=== PATIENT | male | born 1950 | race Caucasian/White ===

== ENCOUNTER → 2023-10-01 07:17 | Outpatient (REF) | payer OTHER, SELFPAY | LOC: DHCBS MAIN 07:17 | PROVIDERS: ATTENDING PHYSICIAN Internal Medicine Interventional Cardiology; FAMILY PHYSICIAN Internal Medicine | DX: I35.0 Nonrheumatic aortic (valve) stenosis (principal); Z95.2 Presence of prosthetic heart valve | CPT/HCPCS: 93306 ==

== ENCOUNTER → 2023-12-23 07:52 | Outpatient (REF) | payer OTHER, SELFPAY | LOC: HWRAD 07:52 | PROVIDERS: ATTENDING PHYSICIAN Internal Medicine; FAMILY PHYSICIAN Internal Medicine | DX: Z12.11 Encounter for screening for malignant neoplasm of colon (principal) | CPT/HCPCS: 74261 ==

== ENCOUNTER 2024-03-10 06:13 | Day surgery (SDC) | payer OTHER, SELFPAY ==
[2024-03-10 06:48] VITALS: BP 159/106
[2024-03-10 06:50] VITALS: BMI 27.9
[2024-03-10 06:53] VITALS: BMI 27.9
[2024-03-10 09:53] VITALS: BP 124/85
[2024-03-10 10:00] VITALS: BP 125/84
[2024-03-10 10:15] VITALS: BP 147/96
== END 2024-03-10 10:50 | disposition home or self-care (01) ==
LOC: SDS 06:13
PROVIDERS: ATTENDING PHYSICIAN Internal Medicine Gastroenterology
DX: D12.0 Benign neoplasm of cecum (principal); D12.2 Benign neoplasm of ascending colon; D12.3 Benign neoplasm of transverse colon; K57.30 Diverticulosis of large intestine without perforation or abscess without bleeding; K64.0 First degree hemorrhoids; R93.3 Abnormal findings on diagnostic imaging of other parts of digestive tract; Z79.01 Long term (current) use of anticoagulants
CPT/HCPCS: 45390; 45385; 45380; 88305

== ENCOUNTER → 2025-03-23 08:55 | Outpatient (REF) | payer OTHER, SELFPAY | LOC: HWRCS 08:55 | PROVIDERS: ATTENDING PHYSICIAN Internal Medicine Interventional Cardiology; FAMILY PHYSICIAN Internal Medicine | DX: I10 Essential (primary) hypertension (principal); I42.9 Cardiomyopathy, unspecified; Z95.2 Presence of prosthetic heart valve | CPT/HCPCS: 93306 ==